=== PATIENT | male | born 1965 | race Caucasian/White ===

== ENCOUNTER 2021-03-19 10:23 | Emergency (ER) | payer OTHER ==
[2021-03-19] MEDS ORDERED: Lactated Ringers 1,000 ML IV ONE (10:48)
--- NOTE | 2021-03-19 10:55 | EDM.PDOC ---
ED HPI GENERAL MEDICAL PROBLEM - General Chief Complaint: Syncope Stated Complaint: MEDICAL VIA [facility] Time Seen by Provider: 03/19/21 10:41 Source of Information: Reports: Patient, RN Notes Reviewed History Limitations: Reports: No Limitations - History of Present Illness INITIAL COMMENTS - FREE TEXT/NARRATIVE: 55-year-old gentleman presents emergency department today via EMS services, he was working out on a treadmill states he was pushing himself had finished his workout and then was walking up the stairs unwitnessed syncopal event found by family member EMS services and first responders did arrive. One of the first responders CO2 detector did go off no one else in the house is ill he states he awoke on the ambulance gurney on the way to the ambulance he was not confused there is no history of seizures in the family. He does admit that there was an error code on his furnace yesterday he reset the furnace he does not have a carbon monoxide detector in the basement. His workout room is next to the furnace. - Related Data Allergies Allergy/AdvReac Type Severity Reaction Status Date / Time ampicillin Allergy Rash Verified 03/19/21 10:30 Home Meds: Home Meds Hydroxychloroquine Sulfate 200 mg PO BID 03/19/21 [History] Levothyroxine 112 mcg PO ASDIRECTED 03/19/21 [History] Past Medical History Endocrine/Metabolic History: Reports: Hypothyroidism Immunologic History: Reports: Other (See Below) (cvid combined variable immunodeficiency with neutropenia) Social & Family History - Tobacco Use Tobacco Use Status *Q: Never Tobacco User - Recreational Drug Use Recreational Drug Use: No ED ROS GENERAL - Review of Systems Review Of Systems: See Below Constitutional: Reports: No Symptoms HEENT: Reports: No Symptoms Respiratory: Reports: No Symptoms Cardiovascular: Reports: Syncope GI/Abdominal: Reports: No Symptoms ED EXAM, GENERAL - Physical Exam Exam: See Below Exam Limited By: No Limitations General Appearance: Alert, WD/WN, No Apparent Distress Respiratory/Chest: No Respiratory Distress, Lungs Clear, Normal Breath Sounds, No Accessory Muscle Use, Chest Non-Tender Cardiovascular: Regular Rate, Rhythm, No Murmur Neurological: Alert, Oriented, No Motor/Sensory Deficits #1 Interpretation EKG Date: 03/19/21 Time: 11:12 Rhythm: NSR [place]: Normal P-Wave: Present QRS: Normal ST-T: Normal QT: Normal Comparison: NA - No Prior EKG Course - Vital Signs Last Recorded V/S: Last Vital Signs Temp 95.9 F L 03/19/21 10:26 Pulse 74 03/19/21 18:07 Resp 14 03/19/21 18:07 BP 116/77 03/19/21 18:07 Pulse Ox 99 03/19/21 18:07 - Orders/Labs/Meds Orders: Active Orders 24 hr Category Date Time Status Cardiac Monitoring [RC] STAT Care 03/19/21 17:08 Active Chest 1V Frontal [CR] Urgent Exams 03/19/21 17:09 Taken TROPONIN I [CHEM] Stat Lab 03/19/21 22:30 Ordered Heparin Sodium/D5W [Heparin 25,000 Units in D5W 500 ML] Med 03/19/21 17:15 Active 25,000 units in 500 ml IV TITRATE Isolation [COMM] Stat Oth 03/19/21 17:10 Ordered EKG 12 Lead [EK] Stat Ther 03/19/21 10:47 Ordered Medication Orders Heparin Sodium/Dextrose (Heparin 25,000 Units In D5w 500 Ml) 25,000 units in 500 mls @ 19.051 mls/hr IV TITRATE INES; Protocol Last Admin: 03/19/21 17:28 Dose: 12 units/kg/hr, 19.051 mls/hr Documented by: REBECCA Cosigned by: VINOD Labs: Laboratory Tests 03/19/21 03/19/21 03/19/21 Range/Units 11:00 11:00 11:22 WBC 1.9 L (4.5-11.0) K/uL RBC 5.04 (4.30-5.90) M/uL Hgb 14.2 (12.0-15.0) g/dL Hct 41.6 (40.0-54.0) % MCV 83 (80-98) fL MCH 28 (27-31) pg MCHC 34 (32-36) % Plt Count 87 L (150-400) K/uL Neut % (Auto) 47.8 (36-66) % Lymph % (Auto) 39.8 (24-44) % Twiggs % (Auto) 10.8 H (2-6) % Eos % (Auto) 1.1 L (2-4) % Baso % (Auto) 0.5 (0-1) % PT (9.2-10.6) sec INR APTT (21.4-31.8) sec Puncture Site Rt radial ABG pH 7.471 H (7.350-7.450) ABG pCO2 30.8 L (35.0-42.0) mmHg ABG pO2 79.1 (75.0-100.0) mmHg ABG HCO3 22.2 (22.0-26.0) mmol/L ABG Total CO2 19.3 L (23.0-27.0) mmol/L ABG O2 Saturation 96.6 (95.0-98.0) % ABG O2 Content 18.5 (15.0-23.0) %vol ABG Base Excess -0.1 mm/L ABG Hemoglobin 13.9 (13.5-18.0) g/dL ABG Oxyhemoglobin 94.8 % ABG Carboxyhemoglobin 1.0 (0.0-1.6) % ABG Methemoglobin 0.9 % Simon Test Passed O2 Delivery Device Nasal cannula Oxygen Flow Rate L Sodium (140-148) mmol/L Potassium (3.6-5.2) mmol/L Chloride (100-108) mmol/L Carbon Dioxide (21-32) mmol/L Anion Gap (5.0-14.0) mmol/L BUN (7-18) mg/dL Creatinine (0.8-1.3) mg/dL Est Cr Clr Drug Dosing mL/min Estimated GFR (MDRD) (>60) Glucose (74-106) mg/dL Lactic Acid 1.2 (0.4-2.0) mmol/L Calcium (8.5-10.1) mg/dL Total Bilirubin (0.2-1.0) mg/dL AST (15-37) U/L ALT (12-78) U/L Alkaline Phosphatase (46-116) U/L Troponin I (0.000-0.056) ng/mL Total Protein (6.4-8.2) g/dL Albumin (3.4-5.0) g/dL Globulin (2.3-3.5) g/dL Albumin/Globulin Ratio (1.2-2.2) Influenza Type A RNA (NEGATIVE) RSV RNA (INAAT) (NEGATIVE) Influenza Type B RNA (NEGATIVE) SARS-CoV-2 RNA (JESSE) (NEGATIVE) 03/19/21 03/19/21 03/19/21 Range/Units 11:22 15:26 17:20 WBC (4.5-11.0) K/uL RBC (4.30-5.90) M/uL Hgb (12.0-15.0) g/dL Hct (40.0-54.0) % MCV (80-98) fL MCH (27-31) pg MCHC (32-36) % Plt Count (150-400) K/uL Neut % (Auto) (36-66) % Lymph % (Auto) (24-44) % Twiggs % (Auto) (2-6) % Eos % (Auto) (2-4) % Baso % (Auto) (0-1) % PT 10.4 (9.2-10.6) sec INR 1.0 APTT 23.0 (21.4-31.8) sec Puncture Site ABG pH (7.350-7.450) ABG pCO2 (35.0-42.0) mmHg ABG pO2 (75.0-100.0) mmHg ABG HCO3 (22.0-26.0) mmol/L ABG Total CO2 (23.0-27.0) mmol/L ABG O2 Saturation (95.0-98.0) % ABG O2 Content (15.0-23.0) %vol ABG Base Excess mm/L ABG Hemoglobin (13.5-18.0) g/dL ABG Oxyhemoglobin % ABG Carboxyhemoglobin (0.0-1.6) % ABG Methemoglobin % Simon Test O2 Delivery Device Oxygen Flow Rate L Sodium 144 (140-148) mmol/L Potassium 4.2 (3.6-5.2) mmol/L Chloride 110 H (100-108) mmol/L Carbon Dioxide 24 (21-32) mmol/L Anion Gap 14.2 H (5.0-14.0) mmol/L BUN 15 (7-18) mg/dL Creatinine 1.2 (0.8-1.3) mg/dL Est Cr Clr Drug Dosing 74.55 mL/min Estimated GFR (MDRD) > 60 (>60) Glucose 99 (74-106) mg/dL Lactic Acid (0.4-2.0) mmol/L Calcium 8.4 L (8.5-10.1) mg/dL Total Bilirubin 0.5 (0.2-1.0) mg/dL AST 46 H (15-37) U/L ALT 47 (12-78) U/L Alkaline Phosphatase 92 (46-116) U/L Troponin I 0.085 H* 0.536 H* (0.000-0.056) ng/mL Total Protein 6.3 L (6.4-8.2) g/dL Albumin 3.4 (3.4-5.0) g/dL Globulin 2.9 (2.3-3.5) g/dL Albumin/Globulin Ratio 1.2 (1.2-2.2) Influenza Type A RNA (NEGATIVE) RSV RNA (INAAT) (NEGATIVE) Influenza Type B RNA (NEGATIVE) SARS-CoV-2 RNA (JESSE) (NEGATIVE) 03/19/21 Range/Units 17:32 WBC (4.5-11.0) K/uL RBC (4.30-5.90) M/uL Hgb (12.0-15.0) g/dL Hct (40.0-54.0) % MCV (80-98) fL MCH (27-31) pg MCHC (32-36) % Plt Count (150-400) K/uL Neut % (Auto) (36-66) % Lymph % (Auto) (24-44) % [place] % (Auto) (2-6) % Eos % (Auto) (2-4) % Baso % (Auto) (0-1) % PT (9.2-10.6) sec INR APTT (21.4-31.8) sec Puncture Site ABG pH (7.350-7.450) ABG pCO2 (35.0-42.0) mmHg ABG pO2 (75.0-100.0) mmHg ABG HCO3 (22.0-26.0) mmol/L ABG Total CO2 (23.0-27.0) mmol/L ABG O2 Saturation (95.0-98.0) % ABG O2 Content (15.0-23.0) %vol ABG Base Excess mm/L ABG Hemoglobin (13.5-18.0) g/dL ABG Oxyhemoglobin % ABG Carboxyhemoglobin (0.0-1.6) % ABG Methemoglobin % Simon Test O2 Delivery Device Oxygen Flow Rate L Sodium (140-148) mmol/L Potassium (3.6-5.2) mmol/L Chloride (100-108) mmol/L Carbon Dioxide (21-32) mmol/L Anion Gap (5.0-14.0) mmol/L BUN (7-18) mg/dL Creatinine (0.8-1.3) mg/dL Est Cr Clr Drug Dosing mL/min Estimated GFR (MDRD) (>60) Glucose (74-106) mg/dL Lactic Acid (0.4-2.0) mmol/L Calcium (8.5-10.1) mg/dL Total Bilirubin (0.2-1.0) mg/dL AST (15-37) U/L ALT (12-78) U/L Alkaline Phosphatase (46-116) U/L Troponin I (0.000-0.056) ng/mL Total Protein (6.4-8.2) g/dL Albumin (3.4-5.0) g/dL Globulin (2.3-3.5) g/dL Albumin/Globulin Ratio (1.2-2.2) Influenza Type A RNA Negative (NEGATIVE) RSV RNA (INAAT) Negative (NEGATIVE) Influenza Type B RNA Negative (NEGATIVE) SARS-CoV-2 RNA (JESSE) Negative (NEGATIVE) Meds: Medications Generic Name Dose Route Start Last Admin Trade Name [place] PRN Reason Stop Dose Admin Heparin Sodium/Dextrose 25,000 units in 500 mls @ 19.051 mls/hr 03/19/21 17:15 03/19/21 17:28 Heparin 25,000 Units In D5w 500 Ml IV 12 units/kg/hr TITRATE INES 19.051 mls/hr Administration Protocol 12 UNITS/KG/HR Discontinued Medications Generic Name Dose Route Start Last Admin Trade Name Freq PRN Reason Stop Dose Admin Aspirin 324 mg 03/19/21 17:08 03/19/21 17:18 Aspirin 81 Mg Tab.Chew PO 03/19/21 17:09 324 mg ONETIME ONE Administration Heparin Sodium (Porcine) 4,000 units 03/19/21 17:08 03/19/21 17:20 Heparin Sodium 5,000 Units/Ml Vial IVPUSH 03/19/21 17:09 4,000 units ONETIME ONE Administration Lactated Ringer's 1,000 mls @ 999 mls/hr 03/19/21 10:48 03/19/21 11:13 Ringers, Lactated IV 03/19/21 11:48 999 mls/hr BOLUS ONE Administration Ticagrelor 180 mg 03/19/21 17:08 03/19/21 17:18 Ticagrelor 90 Mg Tab PO 03/19/21 17:09 180 mg ONETIME ONE Administration Departure - Departure Time of Disposition: 18:30 Disposition: DC/Tfer to Acute Hospital 02 Reason for Transfer *Q: Primary PCI Indicated Condition: Fair Clinical Impression: Non-ST elevation myocardial infarction (NSTEMI) Referrals: PCP,None [Primary Care Provider] - Forms: ED Department Discharge Sepsis Event Note (ED) - Evaluation Sepsis Screening Result: No Definite Risk - Focused Exam Vital Signs: Vital Signs Temp Pulse Resp BP Pulse Ox 03/19/21 18:07 74 14 116/77 99 03/19/21 17:10 15 109/74 99 03/19/21 17:06 75 18 113/73 98 03/19/21 16:06 68 15 113/71 99 03/19/21 15:18 66 14 98/74 96 03/19/21 14:27 62 11 L 105/70 97 03/19/21 14:09 13 108/78 97 03/19/21 13:17 67 16 102/63 99 03/19/21 12:55 65 106/70 94 L 03/19/21 12:30 66 13 108/73 98 03/19/21 11:55 13 111/82 100 03/19/21 11:34 59 L 18 101/71 100 03/19/21 11:13 18 103/72 100 03/19/21 10:26 95.9 F L 63 17 94/65 100 - My Orders Last 24 Hours: My Active Orders 03/19/21 10:47 EKG 12 Lead [EK] Stat 03/19/21 17:08 Cardiac Monitoring [RC] STAT 03/19/21 17:09 Chest 1V Frontal [CR] Urgent 03/19/21 17:10 Isolation [COMM] Stat 03/19/21 17:15 Heparin Sodium/D5W [Heparin 25,000 Units in D5W 500 ML] 25,000 units in 500 ml IV TITRATE 03/19/21 22:30 TROPONIN I [CHEM] Stat - Assessment/Plan Last 24 Hours: My Active Orders 03/19/21 10:47 EKG 12 Lead [EK] Stat 03/19/21 17:08 Cardiac Monitoring [RC] STAT 03/19/21 17:09 Chest 1V Frontal [CR] Urgent 03/19/21 17:10 Isolation [COMM] Stat 03/19/21 17:15 Heparin Sodium/D5W [Heparin 25,000 Units in D5W 500 ML] 25,000 units in 500 ml IV TITRATE 03/19/21 22:30 TROPONIN I [CHEM] Stat Plan: Assessment Acuity = acute Site and laterality = non-ST elevation myocardial infarction Etiology = probable underlying coronary artery disease Manifestations = none Location of injury = Home Lab values = WBC low at 1.9 consistent leukopenia platelets low at 87 consistent with thrombocytopenia, troponin initially 0.0853 hours later 0.[address] scan of the head negative chest x-ray I did review films myself I cannot appreciate any acute process, the official read from radiology is pending EKG reveals no ST elevations or depressions Plan Call discussed case with Dr. Patel hospitalist [facility] kindly excepted the patient at 1800 pending Covid tests thus far he has been given aspirin, Brilinta heparin bolus and heparin drip has been initiated he will be transported via EMS ground This note was dictated using Filao voice recognition software please call with any questions on syntax or grammar.
--- NOTE | 2021-03-19 17:03 | CRLCT ---
For Patients: As a result of the Cures Act, medical imaging exams and procedure reports are released immediately into your electronic medical record. You may view this report before your referring provider. If you have questions, please contact your health care provider. INDICATION: Syncopal event, elevated troponins TECHNIQUE: CT head without contrast. COMPARISON: None FINDINGS: CSF spaces: Within normal limits for age. Brain parenchyma: The beltran-white differentiation is normal. No sign of mass, hemorrhage, or midline shift. Skull base and calvarium: The visualized paranasal sinuses and mastoid air cells are clear. The visualized orbits are grossly unremarkable. No skull fractures. IMPRESSION: Unremarkable noncontrast head CT. Please note that all CT scans at this facility use dose modulation, iterative reconstruction, and/or weight-based dosing when appropriate to reduce radiation dose to as low as reasonably achievable. Dictated by Adali Abarca MD @ 03/19/2021 5:01:25 PM (Electronically Signed)
[2021-03-19] MEDS ORDERED: Ticagrelor 90 MG Tab PO ONE (17:08)
[2021-03-19] MEDS ORDERED: Aspirin 81 MG Tab.Chew PO ONE (17:08)
[2021-03-19] MEDS ORDERED: Heparin Sodium 5,000 Units/ML Vial IVPUSH ONE (17:08)
[2021-03-19] MEDS ORDERED: Heparin Sodium/D5W 25,000 UNITS/500 ML BAG IV SCH (17:15)
[2021-03-19 18:12] LABS: CORONAVIRUS COVID-19 NAA NEGATIVE (NEGATIVE)
--- NOTE | 2021-03-21 09:38 | CR ---
CHEST: Portable 03/19/2021 at 5:32 PM CLINICAL HISTORY:Elevated Trop COMPARISON:None FINDINGS: The heart size, pulmonary vascularity and hilar structures are normal. No infiltrate effusion or pneumothorax is seen. IMPRESSION: No acute cardiopulmonary process.
== END 2021-03-19 20:20 ==
LOC: JP.ED 10:23
DX: I21.4 Non-ST elevation (NSTEMI) myocardial infarction (principal); E03.9 Hypothyroidism, unspecified; Z88.0 Allergy status to penicillin; Z79.899 Other long term (current) drug therapy; Z20.822 Contact with and (suspected) exposure to COVID-19
CPT/HCPCS: 0241U; 36415; 36600; 70450; 71045; 80053; 82803; 83605; 84484; 85025; 85610; 85730; 93005; 96365; 96366; 99285; A9270; J1644; J7120

== ENCOUNTER 2021-04-05 14:35 | Emergency (ER) | payer OTHER ==
--- NOTE | 2021-04-05 15:04 | EDM.PDOC ---
ED HPI GENERAL MEDICAL PROBLEM - General Chief Complaint: Chest Pain Stated Complaint: STINT PUT IN A WEEK AGO-ARM PAIN,SWEATING,CHEST Time Seen by Provider: 04/05/21 14:55 Source of Information: Reports: Patient, Family, Old Records History Limitations: Reports: No Limitations - History of Present Illness INITIAL COMMENTS - FREE TEXT/NARRATIVE: 55 yo male presents accompanied by his for about 45 min of L arm pain with mild diaphoresis that came on at rest. Sx's resolved at he was being checked into the ER. No hx of these exact sx's. He was seen here about 10 days ago for a syncopal spell that turned out to be a Non-STEMI and he got shipped to [facility] and had a stent placed in his LAD. He has a strong family hx of CAD, but no real other risk factors. He had felt well in general since his discharge from [place]. He has not today or since discharge from [place] had any chest pain or SOB or nausea. Onset: Today, Sudden Onset Date: 04/05/21 Duration: Minutes: (45), Resolved Prior to Arrival (at arrival) Location: Reports: Upper Extremity, Left Quality: Reports: Ache, Dull Severity: Mild Improves with: Reports: Other (time, gone upon arrival.) Worsens with: Reports: Other (unknown) Context: Reports: Other (See HPI) Associated Symptoms: Reports: Diaphoresis, Other (L arm pain, now resolved) Treatments [employer]: Reports: Other (see below) (none) - Related Data Allergies Allergy/AdvReac Type Severity Reaction Status Date / Time ampicillin Allergy Rash Verified 04/05/21 14:47 Home Meds: Home Meds Hydroxychloroquine Sulfate 200 mg PO BID 03/19/21 [History] Levothyroxine 112 mcg PO ASDIRECTED 03/19/21 [History] Aspirin [Halfprin] 81 mg PO DAILY 04/05/21 [History] Metoprolol Tartrate 25 mg PO BID 04/05/21 [History] Ticagrelor [Brilinta] 90 mg PO BID 04/05/21 [History] atorvaSTATin [Lipitor] 40 mg PO DAILY 04/05/21 [History] Past Medical History Musculoskeletal History: Reports: RA Endocrine/Metabolic History: Reports: Hypothyroidism Immunologic History: Reports: Other (See Below) Social & Family History - Tobacco Use Tobacco Use Status *Q: Never Tobacco User - Recreational Drug Use Recreational Drug Use: No ED ROS GENERAL - Review of Systems Review Of Systems: See Below Constitutional: Reports: Diaphoresis (resolved) HEENT: Reports: No Symptoms Respiratory: Reports: No Symptoms Cardiovascular: Denies: Chest Pain Endocrine: Reports: No Symptoms GI/Abdominal: Reports: No Symptoms : Reports: No Symptoms Musculoskeletal: Reports: Arm Pain (L arm, now resolved) Skin: Reports: Diaphoresis (resolved) Neurological: Reports: No Symptoms ED EXAM, GENERAL - Physical Exam Exam: See Below Exam Limited By: No Limitations General Appearance: Alert, WD/WN, No Apparent Distress Eye Exam: Bilateral Eye: Normal Inspection Ears: Normal External Exam, Normal Canal, Hearing Grossly Normal Ear Exam: Bilateral Ear: Auricle Normal, Canal Normal Nose: Normal Inspection, No Blood Throat/Mouth: Normal Inspection, Normal Lips, Normal Voice, No Airway Compromise Head: Atraumatic, Normocephalic Neck: Normal Inspection Respiratory/Chest: No Respiratory Distress, Lungs Clear, Normal Breath Sounds, No Accessory Muscle Use Cardiovascular: Regular Rate, Rhythm, No Edema GI/Abdominal: Normal Bowel Sounds, Soft, Non-Tender, No Distention. No: Distended Back Exam: Normal Inspection. No: CVA Tenderness (R), CVA Tenderness (L) Extremities: Normal Inspection, Normal Range of Motion, Non-Tender, No Pedal Edema. No: Pedal Edema, Limited Range of Motion Neurological: Alert, Oriented, CN II-XII Intact, Normal Cognition, No Motor/Sensory Deficits Psychiatric: Normal Affect, Normal Mood Skin Exam: Warm, Dry, Intact, Normal Color, No Rash. No: Diaphoretic #1 Interpretation EKG Date: 04/05/21 Time: 15:00 Rhythm: NSR Rate (Beats/Min): 72 [place]: Normal P-Wave: Present QRS: Normal ST-T: Normal QT: Normal Course - Vital Signs Last Recorded V/S: Last Vital Signs Temp 36.5 C 04/05/21 14:44 Pulse 72 04/05/21 17:32 Resp 12 04/05/21 17:32 BP 104/74 04/05/21 17:32 Pulse Ox 97 04/05/21 17:32 - Orders/Labs/Meds Orders: Active Orders 24 hr Category Date Time Status EKG 12 Lead [EK] Routine Ther 04/05/21 14:46 Ordered Labs: Laboratory Tests 04/05/21 04/05/21 Range/Units 15:30 17:18 Troponin I High Sens 43.1 45.1 (<=60.3) pg/mL Departure - Departure Time of Disposition: 17:57 Disposition: Home, Self-Care 01 Condition: Good Clinical Impression: Left arm pain Referrals: No Jones DO [Primary Care Provider] - Forms: ED Department Discharge Additional Instructions: Drink more fluids. Continue current meds. Return as needed. Sepsis Event Note (ED) - Evaluation Sepsis Screening Result: No Definite Risk - Focused Exam Vital Signs: Vital Signs Temp Pulse Resp BP Pulse Ox 04/05/21 17:32 72 12 104/74 97 04/05/21 16:31 70 14 104/69 96 04/05/21 16:01 69 14 101/63 96 04/05/21 15:06 73 20 102/70 96 04/05/21 14:44 36.5 C 66 18 110/71 99 - My Orders Last 24 Hours: My Active Orders 04/05/21 14:46 EKG 12 Lead [EK] Routine - Assessment/Plan Last 24 Hours: My Active Orders 04/05/21 14:46 EKG 12 Lead [EK] Routine
== END 2021-04-05 18:12 | disposition home or self-care (01) ==
LOC: JP.ED 14:35
DX: M79.602 Pain in left arm (principal); M06.9 Rheumatoid arthritis, unspecified; E03.9 Hypothyroidism, unspecified; Z88.0 Allergy status to penicillin; Z79.82 Long term (current) use of aspirin; Z79.899 Other long term (current) drug therapy
CPT/HCPCS: 36415; 84484; 93005; 99283-25

== ENCOUNTER 2022-08-01 08:08 | Day surgery (SDC) | payer MEDICAID, OTHER ==
[2022-08-01] MEDS ORDERED: fentaNYL 50 MCG/ML SDV ONE (08:51)
[2022-08-01] MEDS ORDERED: Midazolam 1 MG/ML 2 ML SDV ONE (08:51)
[2022-08-01] MEDS ORDERED: Propofol 200 MG/20 ML SDV ONE (08:51)
[2022-08-01] MEDS ORDERED: Lactated Ringers 1,000 ML IV SCH (09:00)
== END 2022-08-01 11:17 | disposition home or self-care (01) ==
LOC: JP.SDS 08:08
PROVIDERS: ATTEND Family Medicine
DX: Z12.11 Encounter for screening for malignant neoplasm of colon (principal); K50.00 Crohn's disease of small intestine without complications; Z88.0 Allergy status to penicillin; Z85.850 Personal history of malignant neoplasm of thyroid; Z95.818 Presence of other cardiac implants and grafts
CPT/HCPCS: 45380; J2250; J2704; J3010; J7120; 88305